=== PATIENT | female | born 1945 | race Caucasian/White ===

== ENCOUNTER 2018-08-27 15:12 | Inpatient (IN) ==
[2018-08-27] MEDS ORDERED: Benzonatate 100 MG CAPSULE PO PRN (17:27)
[2018-08-27] MEDS ORDERED: Diclofenac Sodium 75 MG TABLET PO PRN (17:27)
[2018-08-27] MEDS ORDERED: *HR* LORazepam 0.5 MG TABLET PO PRN (17:27)
[2018-08-27] MEDS ORDERED: Menthol 9.1 MG LOZENGE PO PRN (17:27)
[2018-08-27] MEDS ORDERED: Nitroglycerin 0.4 MG TAB.SUBL SL PRN (17:27)
[2018-08-27] MEDS: Nystatin SUSP 5 ML UD.LIQ PO SCH (20:54)
[2018-08-27] MEDS: Melatonin 3 MG TABLET PO SCH (20:55)
[2018-08-27] MEDS: Famotidine 20 MG TABLET PO SCH (20:55)
[2018-08-27] MEDS: Budesonide/Formoterol 160/4.5 1 PUFF INH IH SCH (21:07)
[2018-08-27] MEDS: Albuterol 2.5 MG/3 ML NEBULIZER IH PRN (21:07)
[2018-08-28] MEDS: Famotidine 20 MG TABLET PO SCH ×2 (09:07→20:26)
[2018-08-28] MEDS: Lactobacillus 1 EACH CAP.SPRINK PO SCH (09:07)
[2018-08-28] MEDS: Multivit/Ca/Min/Fe/FA 1 TAB TABLET PO SCH (09:07)
[2018-08-28] MEDS: Furosemide 40 MG TABLET PO SCH (09:07)
[2018-08-28] MEDS: Loratadine 10 MG TABLET PO SCH (09:07)
[2018-08-28] MEDS: Nystatin SUSP 5 ML UD.LIQ PO SCH ×4 (09:07→20:26)
[2018-08-28] MEDS: predniSONE 10 MG TABLET PO SCH (09:07)
[2018-08-28] MEDS: Budesonide/Formoterol 160/4.5 1 PUFF INH IH SCH (10:11)
[2018-08-28] MEDS: Albuterol 2.5 MG/3 ML NEBULIZER IH PRN ×2 (10:17→14:46)
--- NOTE | 2018-08-28 15:31 | Internal Med History&Physical ---
Date of Encounter: 08/28/18 Time of Encounter: 15:00 Assessment and Plan (1) Cavitary pneumonia Current visit: No Status: Chronic Continue Augmentin and voriconazole through 10/08/2018. (Aspergillus fumigatus elements seen on sputum culture. No bacterial organisms isolated) Lactobacillus will be added. (2) Hypertension Current visit: No Status: Chronic Continue metoprolol. Qualifiers: Hypertension type: essential hypertension Qualified Code(s): I10 - Essential (primary) hypertension (3) COPD (chronic obstructive pulmonary disease) Current visit: No Status: Chronic Continue antibiotics with Anoro Ellipta, Proventil nebs prn, prednisone, and Mucinex, Qualifiers: COPD type: chronic bronchitis Chronic bronchitis type: unspecified Qualified Code(s): J42 - Unspecified chronic bronchitis (4) Cavitary lesion of lung Current visit: No Status: Chronic Continue Augmentin and voriconazole with prednisone for 6 weeks. (5) Chronic diastolic heart failure Current visit: No Status: Acute Continue Lasix and Lopressor. Check BN peptide in a.m. (6) Pneumothorax Current visit: No Status: Acute Continue Heimlich valve with pulmonary follow-up as scheduled. Qualifiers: Encounter type: subsequent encounter Qualified Code(s): S27.0XXD - Traumatic pneumothorax, subsequent encounter (7) Anemia Current visit: No Status: Chronic Order anemia testing in a.m. Qualifiers: Anemia type: unspecified type Qualified Code(s): D64.9 - Anemia, unspecified Internal Medicine - H&P: HPI Chief complaint: Dyspnea Admitted From: Hospital to Hospital Transfer Plans for Post Hospital Care: Home History of present illness: Ms. Chandra is a 73 year old female who was transferred to [facility] swing bed following July hospitalization at [facility] for CAP and exacerbation of COPD with right pneumothorax requiring chest tube placement. 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 A right lung cavitary lesion had CT-guided biopsy which did not show malignancy. 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 Respiratory history is significant for having smoked from age [age] up to one and a half packs per day. She had PFTs 03/15/2018 that showed FVC 78% predicted, FEV1 59% predicted, FEV1/FVC 57%, and FEF 25-75% of 34% predicted. She was felt to have moderate obstructive lung disease. She reports negative result from [facility] testing in the past. She has used supplemental oxygen at home for 2-3 years. Past Med Surg Social Fam HX - Past Medical History Medical history: CHF, COPD, hypertension Additional medical history: mitral valve prolapse Psychiatric history: anxiety - Past Surgical History Surgical History: angioplasty/stent, breast surgery, cholecystectomy, hysterectomy, orthopedic, other, other Additional surgical history: left breast. back surgery. EGD. 2 heart stents. Nerve stimulator placement. - Social History Smoking Status: Former smoker Smokeless Tobacco Status: No Alcohol use: none Drug use: none - Family History Brother Living Status: Hx Family Cardiac Disorders: Yes Mother Living Status: Hx Family Cardiac Disorders: Yes ("artery disease", CHF) Hx Family GI Disorders: Yes (ulcers) Hx Family Endocrine Disorder: Yes Father Living Status: Hx Family Cardiac Disorders: Yes ("valve problems") Internal Medicine - H&P: Meds Citalopram [CeleXA] 20 mg PO DAILY 07/28/15 [History] Loratadine [Claritin] 10 mg PO DAILY 07/28/15 [History] Metoprolol [Lopressor] 25 mg PO BID 07/28/15 [History] Nitroglycerin [Nitrostat] 0.4 mg SL Q5M PRN 07/28/15 [History] Aspirin [Lo-Dose Aspirin EC] 81 mg PO DAILY 05/04/18 [History] Budesonide/Formoterol 160/4.5 [Symbicort 160/4.5] 2 puff IH BIDR 05/04/18 [History] L. Acidophilus/Pectin, Hansen [Acidophilus Probiotic Capsule] 1 cap PO DAILY 05/04/18 [History] Multivitamin [One Daily] 1 tab PO DAILY 05/04/18 [History] raNITIdine HCl [Zantac] 150 mg PO BID 05/04/18 [History] Menthol [Cough Drops] 9.1 mg PO Q2H PRN #0 lozenge 05/11/18 [Rx] Melatonin 6 mg PO HS 05/31/18 [History] Guaifenesin [Mucinex] 600 mg PO BID PRN 06/15/18 [History] Albuterol Neb [Proventil Neb] 2.5 mg PO TID PRN 08/03/18 [History] Benzonatate [Tessalon] 200 mg PO HS PRN 08/03/18 [History] Diclofenac Sodium [Voltaren] 75 mg PO DAILY PRN 08/03/18 [History] Nystatin [Nystatin Suspension] 4 ml PO QID 08/03/18 [History] Promethazine [Phenergan] 25 mg PO Q6H PRN 08/03/18 [History] Umeclidinium Brm/Vilanterol Tr [Anoro Ellipta 62.5-25 Mcg INH] 2 puff PO DAILY 08/03/18 [History] Amoxicillin/Clavulanate [Augmentin] 875 mg PO BIDWM #84 tablet 08/27/18 [Rx] Furosemide [Lasix] 40 mg PO DAILY tablet 08/27/18 [Rx] Furosemide [Lasix] 40 mg PO DAILY #30 tablet 08/27/18 [Rx] LORazepam [Ativan] 0.5 mg PO BID PRN 5 Days #10 tablet 08/27/18 [Rx] Voriconazole [VFend] 200 mg PO Q12H #84 tablet 08/27/18 [Rx] predniSONE [PredniSONE] 10 mg PO DAILY #30 tablet 08/27/18 [Rx] Allergy/AdvReac Type Severity Reaction Status Date / Time clarithromycin [From Biaxin] Allergy Gastrointestinal Verified 08/03/18 14:48 Upset codeine AdvReac See Verified 08/03/18 14:48 Comments lansoprazole [From Prevacid] AdvReac ulcer Verified 08/03/18 14:48 lisinopril AdvReac Cough Verified 08/03/18 14:48 meloxicam [From Mobic] AdvReac ulcer Verified 08/03/18 14:48 opium (anthroposophic) AdvReac nausea/vomi Verified 08/03/18 14:48 [Opium (Anthroposophic)] ting All Systems PM: A 10-system review of systems was performed and is negative for pertinent findings except as documented above in the HPI. Review of systems: Gen.: Her weight has decreased from 73.42 kg August 2016 to 69.5 kg admission now Cardiovascular: She has history of hypertension and known ASHD with 2 stents placed approximately 2003. She reports a diagnosis of heart failure. Echocardiogram 06/01/2018 showed LVEF of 55%. There was mild tricuspid regurgitation. The interventricular septum and posterior wall thickness measurements were 1.30 and 1.20 cm respectively. Estimated RVSP was 13 mmHg. She denies DVT or pulmonary embolus. Respiratory: As per history of present illness GI: She has had cholecystectomy. She denies disorders of her liver or exocrine pancreas : She denies hematuria dysuria or kidney stones Neurologic: She denies large distribution strokes or seizures. Endocrine: She has hyperlipidemia denies diabetes or thyroid disease Hematology/oncology: She has anemia. She denies internal malignancies or other blood disorders. Psychiatric: She has anxiety and depression but denies other mental health diagnoses. [place] skeletal: She has DJD. She has had back surgery for spinal stenosis with pain stimulator placed. She denies gout or other bone joint or muscle diso rders. - Constitutional Vitals: Temp Pulse Resp BP Pulse Ox 97.7 F 105 24 174/66 94 08/28/18 07:36 08/28/18 12:55 08/28/18 14:46 08/28/18 07:36 08/28/18 14:46 Exam: Gen.: She is well-developed well-nourished female sitting in bed who appears dyspneic at rest HEENT: Head is atraumatic and normocephalic. Eyes: EOMI. There is no scleral icterus. Mouth: Mucosa is moist. Neck: Supple and nontender. There is no thyromegaly or adenopathy noted. Heart: Regular without murmurs gallops or ectopics Lungs: She has pleural friction rub heard in the right anterior lung field. A Heimlich valve is in place with insertion site in the right posterior upper lung. Abdomen: Soft and nontender. No masses or guarding are noted. Extremities: There is 1-2+ edema of the dorsum of the feet and lower legs bilaterally. Dorsalis pedis and posterior tibial pulses are not palpated. Neurologic: Mental status: She is talkative and a good historian. Cranial nerves: Smile is symmetric. Forehead wrinkles bilaterally. Tongue protrudes midline. EOMI. Motor: There is no pronator drift. Cerebellar: Finger to nose is intact bilaterally. Skin: Warm and dry
[2018-08-28] MEDS: Melatonin 3 MG TABLET PO SCH (20:26)
[2018-08-28] MEDS: *HR* LORazepam 0.5 MG TABLET PO PRN (22:41)
[2018-08-28] MEDS: traMADol 50 MG TABLET PO PRN (22:41)
[2018-08-29 07:42] LABS: Thyroid Stimulating Hormone 1.502 mcIU/mL (0.340-5.600)
[2018-08-29] MEDS: traMADol 50 MG TABLET PO PRN ×2 (09:08→20:33)
[2018-08-29] MEDS: *HR* LORazepam 0.5 MG TABLET PO PRN ×2 (09:08→20:33)
[2018-08-29] MEDS: Nystatin SUSP 5 ML UD.LIQ PO SCH ×4 (09:08→20:33)
[2018-08-29] MEDS: predniSONE 10 MG TABLET PO SCH (09:09)
[2018-08-29] MEDS: Furosemide 40 MG TABLET PO SCH (09:09)
[2018-08-29] MEDS: Lactobacillus 1 EACH CAP.SPRINK PO SCH (09:09)
[2018-08-29] MEDS: Multivit/Ca/Min/Fe/FA 1 TAB TABLET PO SCH (09:09)
[2018-08-29] MEDS: Loratadine 10 MG TABLET PO SCH (09:09)
[2018-08-29] MEDS: Famotidine 20 MG TABLET PO SCH ×2 (09:09→20:33)
[2018-08-29 09:40] LABS: Vitamin B12 664 pg/mL (250-1100)
[2018-08-29 10:04] LABS: Folate > 22.3 ng/mL (3.0-16.0)
--- NOTE | 2018-08-29 15:55 | Internal Med Progress Note ---
Date of Encounter: 08/29/18 Time of Encounter: 15:48 - Assessment and plan (1) Cavitary pneumonia Current Visit: No Status: Chronic Assessment and plan: August 29. Continue Augmentin and voriconazole through 10/08/2018. (2) Hypertension Current Visit: No Status: Chronic Assessment and plan: August 29. Continue metoprolol. Qualifiers: Hypertension type: essential hypertension Qualified Code(s): I10 - Essential (primary) hypertension (3) COPD (chronic obstructive pulmonary disease) Current Visit: No Status: Chronic Assessment and plan: August 29. Continue antibiotics with Anoro Ellipta, Proventil nebs prn, prednisone, and Mucinex, Qualifiers: COPD type: chronic bronchitis Chronic bronchitis type: unspecified Qualified Code(s): J42 - Unspecified chronic bronchitis (4) Chronic diastolic heart failure Current Visit: No Status: Acute Assessment and plan: August 29. BN peptide elevated at 824. Continue Lopressor. Change from Lasix to Bumex and add Imdur and Lanoxin. (5) Pneumothorax Current Visit: No Status: Acute Assessment and plan: August 29. Continue Heimlich valve with pulmonary follow-up as scheduled. Qualifiers: Encounter type: subsequent encounter Qualified Code(s): S27.0XXD - Traumatic pneumothorax, subsequent encounter (6) Anemia Current Visit: No Status: Chronic Assessment and plan: August 29. Anemia testing showed iron 13, transferrin saturation 4%, transferrin 220, ferritin 75, B12 664, and folate> 22.3. She is on H2 darlene which will decrease absorption of oral iron. She will be given iron dextran IV. Qualifiers: Anemia type: unspecified type Qualified Code(s): D64.9 - Anemia, unspecified - Subjective Interval history: August 29. She has no new complaints and think she feels slightly better. She still has dyspnea. - Constitutional Vitals: Temp Pulse Resp BP Pulse Ox 98.3 F 114 20 106/68 94 08/29/18 07:05 08/29/18 07:05 08/29/18 07:05 08/29/18 07:05 08/29/18 07:05 Exam: She is resting comfortably in bed. Her affect is overall cheerful. Extremity edema is unchanged. I reviewed her medications and lab results. Internal Medicine: Result - Impressions Impressions Chest X-Ray 08/28/18 17:53 IMPRESSION: 1. Stable cardiopulmonary status since 08/26/2018. D/ / 08/28/2018 20:05:47 Kenya Bullock MD / [email or web address] Interpreting Provider: Kenya Bullock MD Consult Discharge Plan - Plan Referrals: Ean Herron Jr, MD [Primary Care Provider] - 1 week
[2018-08-29] MEDS ORDERED: SODIUM CHLORIDE 0.9% IVPB ONE (15:58)
[2018-08-29] MEDS ORDERED: IRON DEXTRAN COMPLEX IVPB ONE (15:58)
[2018-08-29] MEDS: Isosorbide MONOnitrate (24 HR) 30 MG TAB.ER.24H PO SCH (17:29)
[2018-08-29] MEDS: *HR* Digoxin 0.125 MG TABLET PO SCH (17:29)
[2018-08-29] MEDS: Bumetanide 1 MG TABLET PO SCH (17:29)
[2018-08-29] MEDS: Melatonin 3 MG TABLET PO SCH (20:33)
[2018-08-30] MEDS: *HR* LORazepam 0.5 MG TABLET PO PRN ×3 (02:30→19:43)
[2018-08-30] MEDS: traMADol 50 MG TABLET PO PRN ×3 (02:30→19:43)
[2018-08-30] MEDS: Isosorbide MONOnitrate (24 HR) 30 MG TAB.ER.24H PO SCH (08:47)
[2018-08-30] MEDS: Lactobacillus 1 EACH CAP.SPRINK PO SCH (08:47)
[2018-08-30] MEDS: Multivit/Ca/Min/Fe/FA 1 TAB TABLET PO SCH (08:47)
[2018-08-30] MEDS: *HR* Digoxin 0.125 MG TABLET PO SCH (08:47)
[2018-08-30] MEDS: Loratadine 10 MG TABLET PO SCH (08:47)
[2018-08-30] MEDS: Nystatin SUSP 5 ML UD.LIQ PO SCH ×4 (08:47→19:55)
[2018-08-30] MEDS: Famotidine 20 MG TABLET PO SCH ×2 (08:47→19:54)
[2018-08-30] MEDS: Bumetanide 1 MG TABLET PO SCH (08:47)
[2018-08-30] MEDS: predniSONE 10 MG TABLET PO SCH (08:47)
[2018-08-30] MEDS ORDERED: IRON DEXTRAN COMPLEX IVPB ONE (09:00)
[2018-08-30] MEDS ORDERED: SODIUM CHLORIDE 0.9% IVPB ONE (09:00)
--- NOTE | 2018-08-30 12:03 | Internal Med Progress Note ---
Date of Encounter: 08/30/18 Time of Encounter: 11:54 - Assessment and plan (1) Cavitary pneumonia Current Visit: No Status: Chronic Assessment and plan: August 29. Continue Augmentin and voriconazole through 10/08/2018. (2) Hypertension Current Visit: No Status: Chronic Assessment and plan: August 29. Continue metoprolol. August 30. Blood pressure shows borderline low readings. Decrease metoprolol to 12.5 mg twice a day. Qualifiers: Hypertension type: essential hypertension Qualified Code(s): I10 - Essential (primary) hypertension (3) COPD (chronic obstructive pulmonary disease) Current Visit: No Status: Chronic Assessment and plan: August 29. Continue antibiotics with Anoro Ellipta, Proventil nebs prn, prednisone, and Mucinex, Qualifiers: COPD type: chronic bronchitis Chronic bronchitis type: unspecified Qualified Code(s): J42 - Unspecified chronic bronchitis (4) Chronic diastolic heart failure Current Visit: No Status: Acute Assessment and plan: August 29. BN peptide elevated at 824. Continue Lopressor. Change from Lasix to Bumex and add Imdur and Lanoxin. August 30. Recheck labs in a.m. (5) Pneumothorax Current Visit: No Status: Acute Assessment and plan: August 29. Continue Heimlich valve with pulmonary follow-up as scheduled. Qualifiers: Encounter type: subsequent encounter Qualified Code(s): S27.0XXD - Traumatic pneumothorax, subsequent encounter (6) Anemia Current Visit: No Status: Chronic Assessment and plan: August 29. Anemia testing showed iron 13, transferrin saturation 4%, transferrin 220, ferritin 75, B12 664, and folate> 22.3. She is on H2 darlene which will decrease absorption of oral iron. She will be given iron dextran IV. August 30. Recheck labs in a.m. Qualifiers: Anemia type: unspecified type Qualified Code(s): D64.9 - Anemia, unspecified - Subjective Interval history: August 29. She has no new complaints and think she feels slightly better. She still has dyspnea. August 30. She has no new complaints. She states she is slightly less dyspneic and feels better overall. - Constitutional Vitals: Temp Pulse Resp BP Pulse Ox 97.9 F 109 20 104/70 94 08/30/18 07:54 08/30/18 07:54 08/30/18 07:54 08/30/18 07:54 08/30/18 07:54 Exam: She is sitting on the side of bed eating lunch. She is minimally dyspneic and able to converse. Extremities show 1-2+ edema bilaterally of the dorsum of the feet and lower legs. I reviewed her medications and lab results. Consult Discharge Plan - Plan Referrals: Ean Herron Jr, MD [Primary Care Provider] - 1 week
[2018-08-30] MEDS: Melatonin 3 MG TABLET PO SCH (19:54)
[2018-08-30] MEDS: Albuterol 2.5 MG/3 ML NEBULIZER IH PRN (22:51)
[2018-08-31] MEDS: Albuterol 2.5 MG/3 ML NEBULIZER IH PRN ×2 (07:36→15:32)
[2018-08-31] MEDS: Isosorbide MONOnitrate (24 HR) 30 MG TAB.ER.24H PO SCH (08:18)
[2018-08-31] MEDS: Lactobacillus 1 EACH CAP.SPRINK PO SCH (08:18)
[2018-08-31] MEDS: Bumetanide 1 MG TABLET PO SCH (08:18)
[2018-08-31] MEDS: Loratadine 10 MG TABLET PO SCH (08:19)
[2018-08-31] MEDS: Multivit/Ca/Min/Fe/FA 1 TAB TABLET PO SCH (08:19)
[2018-08-31] MEDS: *HR* Digoxin 0.125 MG TABLET PO SCH (08:19)
[2018-08-31] MEDS: Famotidine 20 MG TABLET PO SCH ×2 (08:19→20:00)
[2018-08-31] MEDS: predniSONE 10 MG TABLET PO SCH (08:19)
[2018-08-31] MEDS: Nystatin SUSP 5 ML UD.LIQ PO SCH ×4 (08:19→20:00)
[2018-08-31] MEDS: *HR* LORazepam 0.5 MG TABLET PO PRN ×2 (08:23→16:01)
[2018-08-31] MEDS: traMADol 50 MG TABLET PO PRN ×2 (08:23→18:07)
[2018-08-31 09:37] LABS: Basophils % 0.2 %; Eosinophils # 0.2 K/mcL (0.0-0.6); Eosinophils % 1.4 %; Hematocrit 33.8 % (35.3-44.9); Hemoglobin 9.9 g/dL (11.5-15.4); Immature Granulocytes % 0.9 % (0-4); Lymphocytes # 1.1 K/mcL (0.6-4.6); Lymphocytes % 8.5 %; Mean Corpuscular HGB Conc 29.3 g/dL (31.6-35.5); Mean Corpuscular Hemoglobin 28.4 pg (28.0-33.3); Mean Corpuscular Volume 96.8 fL (83.0-100.0); Mean Platelet Volume 11.5 fL (9.4-12.4); Monocytes # 1.2 K/mcL (0.0-1.3); Monocytes % 9.4 %; Nucleated Red Blood Cells 0.2 /100 WBC (0); Platelet Count 330 K/mcL (140-400); Red Blood Count 3.49 M/mcL (3.82-4.97); Red Cell Distribution Width 16.3 % (11.5-14.5); Segmented Neutrophils % 79.6 %; White Blood Count 12.5 K/mcL (4.3-11.1)
[2018-08-31 09:52] LABS: Alanine Aminotransferase 51 Units/L (7-52); Albumin 3.6 g/dL (3.5-5.7); Albumin/Globulin Ratio 0.9 (1.1-2.2); Alkaline Phosphatase 150 Units/L (34-104); Aspartate Amino Transferase 36 Units/L (13-39); BUN/Creatinine Ratio 45 (6-26); Bilirubin,Total 0.3 mg/dL (0.3-1.0); Blood Urea Nitrogen 24 mg/dL (8-23); Calcium 10.2 mg/dL (8.6-10.3); Carbon Dioxide 31 mEq/L (23-29); Chloride 93 mEq/L (98-107); Globulin 3.8 g/dL (2.4-3.5); Glucose 139 mg/dL (70-105); Osmolality,Calculated 286 (280-300); Potassium 4.1 mEq/L (3.5-5.1); Sodium 135 mEq/L (136-145); Total Protein 7.4 g/dL (6.4-8.9); eGFR For African Americans > 60 (> 60); eGFR For Non-African Americans > 60 (> 60)
--- NOTE | 2018-08-31 10:21 | Internal Med Progress Note ---
Date of Encounter: 08/31/18 Time of Encounter: 10:15 - Assessment and plan (1) Cavitary pneumonia Current Visit: No Status: Chronic Assessment and plan: August 29. Continue Augmentin and voriconazole through 10/08/2018. (2) Hypertension Current Visit: No Status: Chronic Assessment and plan: August 29. Continue metoprolol. August 30. Blood pressure shows borderline low readings. Decrease metoprolol to 12.5 mg twice a day. Qualifiers: Hypertension type: essential hypertension Qualified Code(s): I10 - Essential (primary) hypertension (3) COPD (chronic obstructive pulmonary disease) Current Visit: No Status: Chronic Assessment and plan: August 29. Continue antibiotics with Anoro Ellipta, Proventil nebs prn, prednisone, and Mucinex, Qualifiers: COPD type: chronic bronchitis Chronic bronchitis type: unspecified Qualified Code(s): J42 - Unspecified chronic bronchitis (4) Chronic diastolic heart failure Current Visit: No Status: Acute Assessment and plan: August 29. BN peptide elevated at 824. Continue Lopressor. Change from Lasix to Bumex and add Imdur and Lanoxin. August 30. Recheck labs in a.m. August 31. BN peptide has risen to 1321. Increase Imdur and Bumex. Continue present dose Lanoxin and metoprolol. (5) Pneumothorax Current Visit: No Status: Acute Assessment and plan: August 29. Continue Heimlich valve with pulmonary follow-up as scheduled. Qualifiers: Encounter type: subsequent encounter Qualified Code(s): S27.0XXD - Tra umatic pneumothorax, subsequent encounter (6) Anemia Current Visit: No Status: Chronic Assessment and plan: August 29. Anemia testing showed iron 13, transferrin saturation 4%, transferrin 220, ferritin 75, B12 664, and folate> 22.3. She is on H2 darlene which will decrease absorption of oral iron. She will be given iron dextran IV. August 30. Recheck labs in a.m. August 31. She tolerated IV iron dextran without complications. Hemoglobin has risen to 9.9. Continue to monitor. Qualifiers: Anemia type: unspecified type Qualified Code(s): D64.9 - Anemia, unspecified - Subjective Interval history: August 29. She has no new complaints and think she feels slightly better. She still has dyspnea. August 30. She has no new complaints. She states she is slightly less dyspneic and feels better overall. August 31. She has no new complaints. She states she is more dyspneic today. - Constitutional Vitals: Temp Pulse Resp BP Pulse Ox 98.5 F 80 96 121/51 90 08/31/18 08:30 08/31/18 08:30 08/31/18 08:30 08/31/18 08:30 08/31/18 07:36 Exam: She is sitting at bedside and appears in no acute distress. Extremity edema remains 1-2+ bilaterally in the dorsum of feet and lower legs. Her speech is not broken from dyspnea. I reviewed her medications and lab results. Internal Medicine: Result - Labs CBC & Chem 7: 08/31/18 09:30 08/31/18 09:30 Labs: Short CBC 08/31/18 Range/Units 09:30 WBC 12.5 H (4.3-11.1) K/mcL Hgb 9.9 L D (11.5-15.4) g/dL Hct 33.8 L (35.3-44.9) % Plt Count 330 (140-400) K/mcL Neutrophils # 10.0 H (1.6-8.9) K/mcL BMP 08/31/18 09:30 Sodium 135 L Potassium 4.1 Chloride 93 L Carbon Dioxide 31 H BUN 24 H Creatinine 0.53 L Glucose 139 H Calcium 10.2 Liver Function 08/31/18 Range/Units 09:30 Total Bilirubin 0.3 (0.3-1.0) mg/dL AST 36 (13-39) Units/L ALT 51 (7-52) Units/L Alkaline Phosphatase 150 H (34-104) Units/L Albumin 3.6 (3.5-5.7) g/dL Consult Discharge Plan - Plan Referrals: Ean Herron Jr, MD [Primary Care Provider] - 1 week
[2018-08-31] MEDS: Melatonin 3 MG TABLET PO SCH (20:00)
[2018-09-01] MEDS: traMADol 50 MG TABLET PO PRN ×4 (00:03→22:56)
[2018-09-01] MEDS: *HR* LORazepam 0.5 MG TABLET PO PRN ×2 (00:03→10:07)
[2018-09-01 06:14] LABS: Basophils % 0.2 %; Eosinophils # 0.2 K/mcL (0.0-0.6); Eosinophils % 1.6 %; Hematocrit 30.1 % (35.3-44.9); Hemoglobin 9.1 g/dL (11.5-15.4); Immature Granulocytes % 0.7 % (0-4); Lymphocytes # 1.1 K/mcL (0.6-4.6); Lymphocytes % 7.8 %; Mean Corpuscular HGB Conc 30.2 g/dL (31.6-35.5); Mean Corpuscular Hemoglobin 28.5 pg (28.0-33.3); Mean Corpuscular Volume 94.4 fL (83.0-100.0); Mean Platelet Volume 11.4 fL (9.4-12.4); Monocytes # 1.5 K/mcL (0.0-1.3); Monocytes % 10.8 %; Neutrophils # 10.7 K/mcL (1.6-8.9); Nucleated Red Blood Cells 0.7 /100 WBC (0); Platelet Count 402 K/mcL (140-400); Red Blood Count 3.19 M/mcL (3.82-4.97); Red Cell Distribution Width 16.2 % (11.5-14.5); Segmented Neutrophils % 78.9 %; White Blood Count 13.5 K/mcL (4.3-11.1)
[2018-09-01 06:23] LABS: BUN/Creatinine Ratio 51 (6-26); Blood Urea Nitrogen 23 mg/dL (8-23); Carbon Dioxide 32 mEq/L (23-29); Chloride 95 mEq/L (98-107); Glucose 115 mg/dL (70-105); Osmolality,Calculated 287 (280-300); Potassium 4.1 mEq/L (3.5-5.1); Sodium 136 mEq/L (136-145); eGFR For African Americans > 60 (> 60); eGFR For Non-African Americans > 60 (> 60)
[2018-09-01] MEDS: Albuterol 2.5 MG/3 ML NEBULIZER IH PRN (08:46)
[2018-09-01] MEDS: Famotidine 20 MG TABLET PO SCH ×2 (10:07→19:34)
[2018-09-01] MEDS: Bumetanide 1 MG TABLET PO SCH (10:07)
[2018-09-01] MEDS: Loratadine 10 MG TABLET PO SCH (10:07)
[2018-09-01] MEDS: Lactobacillus 1 EACH CAP.SPRINK PO SCH (10:07)
[2018-09-01] MEDS: Multivit/Ca/Min/Fe/FA 1 TAB TABLET PO SCH (10:07)
[2018-09-01] MEDS: *HR* Digoxin 0.125 MG TABLET PO SCH (10:07)
[2018-09-01] MEDS: Isosorbide MONOnitrate (24 HR) 60 MG TAB.ER.24H PO SCH (10:08)
[2018-09-01] MEDS: Nystatin SUSP 5 ML UD.LIQ PO SCH ×4 (10:08→19:34)
[2018-09-01] MEDS: predniSONE 10 MG TABLET PO SCH (10:08)
[2018-09-01] MEDS: Melatonin 3 MG TABLET PO SCH (19:34)
[2018-09-01] MEDS: ALPRAZolam 0.5 MG TABLET PO PRN (22:56)
[2018-09-02 07:02] LABS: Basophils % 0.2 %; Eosinophils # 0.2 K/mcL (0.0-0.6); Eosinophils % 1.4 %; Hemoglobin 8.7 g/dL (11.5-15.4); Immature Granulocytes % 1.1 % (0-4); Lymphocytes % 9.7 %; Mean Corpuscular Hemoglobin 28.2 pg (28.0-33.3); Mean Corpuscular Volume 94.2 fL (83.0-100.0); Mean Platelet Volume 11.7 fL (9.4-12.4); Monocytes # 1.2 K/mcL (0.0-1.3); Monocytes % 11.4 %; Neutrophils # 8.2 K/mcL (1.6-8.9); Nucleated Red Blood Cells 1.5 /100 WBC (0); Platelet Count 350 K/mcL (140-400); Red Blood Count 3.08 M/mcL (3.82-4.97); Red Cell Distribution Width 16.5 % (11.5-14.5); Segmented Neutrophils % 76.2 %; White Blood Count 10.7 K/mcL (4.3-11.1)
[2018-09-02] MEDS: Albuterol 2.5 MG/3 ML NEBULIZER IH PRN (07:57)
[2018-09-02] MEDS: *HR* Digoxin 0.125 MG TABLET PO SCH (08:44)
[2018-09-02] MEDS: Nystatin SUSP 5 ML UD.LIQ PO SCH ×4 (08:44→20:51)
[2018-09-02] MEDS: ALPRAZolam 0.5 MG TABLET PO PRN ×2 (08:44→15:44)
[2018-09-02] MEDS: Bumetanide 1 MG TABLET PO SCH (08:44)
[2018-09-02] MEDS: predniSONE 10 MG TABLET PO SCH (08:45)
[2018-09-02] MEDS: Isosorbide MONOnitrate (24 HR) 60 MG TAB.ER.24H PO SCH (08:45)
[2018-09-02] MEDS: Famotidine 20 MG TABLET PO SCH ×2 (08:45→20:55)
[2018-09-02] MEDS: Loratadine 10 MG TABLET PO SCH (08:45)
[2018-09-02] MEDS: Lactobacillus 1 EACH CAP.SPRINK PO SCH (08:45)
[2018-09-02] MEDS: Multivit/Ca/Min/Fe/FA 1 TAB TABLET PO SCH (08:45)
--- NOTE | 2018-09-02 11:08 | Internal Med Progress Note ---
Date of Encounter: 09/02/18 Time of Encounter: 11:00 - Assessment and plan (1) Cavitary pneumonia Current Visit: No Status: Chronic Assessment and plan: August 29. Continue Augmentin and voriconazole through 10/08/2018. (2) Hypertension Current Visit: No Status: Chronic Assessment and plan: August 29. Continue metoprolol. August 30. Blood pressure shows borderline low readings. Decrease metoprolol to 12.5 mg twice a day. September 02. Blood pressure acceptable. Heart rate shows frequent borderline tachycardia. Maintain metoprolol 25 mg twice a day. Qualifiers: Hypertension type: essential hypertension Qualified Code(s): I10 - Essential (primary) hypertension (3) COPD (chronic obstructive pulmonary disease) Current Visit: No Status: Chronic Assessment and plan: August 29. Continue antibiotics with Anoro Ellipta, Proventil nebs prn, prednisone, and Mucinex Qualifiers: COPD type: chronic bronchitis Chronic bronchitis type: unspecified Qualified Code(s): J42 - Unspecified chronic bronchitis (4) Chronic diastolic heart failure Current Visit: No Status: Acute Assessment and plan: August 29. BN peptide elevated at 824. Continue Lopressor. Change from Lasix to Bumex and add Imdur and Lanoxin. August 30. Recheck labs in a.m. August 31. BN peptide has risen to 1321. Increase Imdur and Bumex. Continue present dose Lanoxin and metoprolol. September 02. BN peptide shows slight decrease at 1255. Lanoxin level low at 0.4. Increase Lanoxin dose and Imdur (5) Pneumothorax Current Visit: No Status: Acute Assessment and plan: August 29. Continue Heimlich valve with pulmonary follow-up as scheduled. Qualifiers: Encounter type: subsequent encounter Qualified Code(s): S27.0XXD - Traumatic pneumothorax, subsequent encounter (6) Anemia Current Visit: No Status: Chronic Assessment and plan: August 29. Anemia testing showed iron 13, transferrin saturation 4%, transferrin 220, ferritin 75, B12 664, and folate> 22.3. She is on H2 darlene which will decrease absorption of oral iron. She will be given iron dextran IV. August 30. Recheck labs in a.m. August 31. She tolerated IV iron dextran without complications. Hemoglobin has risen to 9.9. Continue to monitor. September 02. Hemoglobin has decreased to 8.7. Guaiac stool and continue to monitor labs. Qualifiers: Anemia type: unspecified type Qualified Code(s): D64.9 - Anemia, unspecified - Subjective Interval history: August 29. She has no new complaints and think she feels slightly better. She still has dyspnea. August 30. She has no new complaints. She states she is slightly less dyspneic and feels better overall. August 31. She has no new complaints. She states she is more dyspneic today. September 02. She has no new complaints. Dyspnea is unchanged. - Constitutional Vitals: Temp Pulse Resp BP Pulse Ox 97.6 F 99 17 106/70 92 09/02/18 06:35 09/02/18 06:35 09/02/18 06:35 09/02/18 06:35 09/02/18 06:35 Exam: She is sitting in bed and appears slightly dyspneic. She is able to speak entire sentences. Lungs show no wheezes or crackles. I reviewed her medications and lab results. Internal Medicine: Result - Labs CBC & Chem 7: 09/02/18 06:30 09/01/18 05:30 Labs: Short CBC 09/02/18 Range/Units 06:30 WBC 10.7 (4.3-11.1) K/mcL Hgb 8.7 L (11.5-15.4) g/dL Hct 29.0 L (35.3-44.9) % Plt Count 350 (140-400) K/mcL Neutrophils # 8.2 (1.6-8.9) K/mcL Consult Discharge Plan - Plan Referrals: Ean Herron Jr, MD [Primary Care Provider] - 1 week
[2018-09-02] MEDS: Melatonin 3 MG TABLET PO SCH (20:54)
[2018-09-03] MEDS: traMADol 50 MG TABLET PO PRN ×2 (06:02→17:16)
[2018-09-03] MEDS: ALPRAZolam 0.5 MG TABLET PO PRN ×2 (07:45→17:12)
[2018-09-03] MEDS: Loratadine 10 MG TABLET PO SCH (07:45)
[2018-09-03] MEDS: Lactobacillus 1 EACH CAP.SPRINK PO SCH (07:45)
[2018-09-03] MEDS: Nystatin SUSP 5 ML UD.LIQ PO SCH ×4 (07:45→20:21)
[2018-09-03] MEDS: Bumetanide 1 MG TABLET PO SCH (07:46)
[2018-09-03] MEDS: Isosorbide MONOnitrate (24 HR) 60 MG TAB.ER.24H PO SCH (07:46)
[2018-09-03] MEDS: Famotidine 20 MG TABLET PO SCH ×2 (07:46→20:22)
[2018-09-03] MEDS: Multivit/Ca/Min/Fe/FA 1 TAB TABLET PO SCH (07:46)
[2018-09-03] MEDS: *HR* Digoxin 0.25 MG TABLET PO SCH (07:46)
[2018-09-03] MEDS: predniSONE 10 MG TABLET PO SCH (07:48)
[2018-09-03] MEDS: Albuterol 2.5 MG/3 ML NEBULIZER IH PRN (16:42)
[2018-09-03] MEDS: Melatonin 3 MG TABLET PO SCH (20:22)
[2018-09-04] MEDS: ALPRAZolam 0.5 MG TABLET PO PRN ×3 (03:38→18:47)
[2018-09-04 05:40] LABS: Basophils % 0.2 %; Eosinophils # 0.2 K/mcL (0.0-0.6); Eosinophils % 1.5 %; Hematocrit 30.8 % (35.3-44.9); Immature Granulocytes % 1.6 % (0-4); Lymphocytes # 0.8 K/mcL (0.6-4.6); Lymphocytes % 7.9 %; Mean Corpuscular HGB Conc 29.2 g/dL (31.6-35.5); Mean Corpuscular Hemoglobin 28.4 pg (28.0-33.3); Mean Corpuscular Volume 97.2 fL (83.0-100.0); Mean Platelet Volume 10.9 fL (9.4-12.4); Monocytes # 1.2 K/mcL (0.0-1.3); Monocytes % 12.1 %; Neutrophils # 7.9 K/mcL (1.6-8.9); Nucleated Red Blood Cells 0.3 /100 WBC (0); Platelet Count 349 K/mcL (140-400); Red Blood Count 3.17 M/mcL (3.82-4.97); Red Cell Distribution Width 17.8 % (11.5-14.5); Segmented Neutrophils % 76.7 %; White Blood Count 10.3 K/mcL (4.3-11.1)
[2018-09-04] MEDS: Nystatin SUSP 5 ML UD.LIQ PO SCH ×4 (08:24→22:33)
[2018-09-04] MEDS: predniSONE 10 MG TABLET PO SCH (08:25)
[2018-09-04] MEDS: Isosorbide MONOnitrate (24 HR) 60 MG TAB.ER.24H PO SCH (08:25)
[2018-09-04] MEDS: Famotidine 20 MG TABLET PO SCH ×2 (08:25→22:33)
[2018-09-04] MEDS: Bumetanide 1 MG TABLET PO SCH (08:25)
[2018-09-04] MEDS: Lactobacillus 1 EACH CAP.SPRINK PO SCH (08:25)
[2018-09-04] MEDS: *HR* Digoxin 0.25 MG TABLET PO SCH (08:26)
[2018-09-04] MEDS: Loratadine 10 MG TABLET PO SCH (08:26)
[2018-09-04] MEDS: Multivit/Ca/Min/Fe/FA 1 TAB TABLET PO SCH (08:26)
[2018-09-04 08:44] LABS: Alanine Aminotransferase 27 Units/L (7-52); Albumin 3.2 g/dL (3.5-5.7); Albumin/Globulin Ratio 1.1 (1.1-2.2); Alkaline Phosphatase 134 Units/L (34-104); Aspartate Amino Transferase 23 Units/L (13-39); BUN/Creatinine Ratio 39 (6-26); Bilirubin,Total 0.3 mg/dL (0.3-1.0); Blood Urea Nitrogen 18 mg/dL (8-23); Calcium 9.8 mg/dL (8.6-10.3); Carbon Dioxide 41 mEq/L (23-29); Chloride 97 mEq/L (98-107); Digoxin 0.7 ng/mL (0.8-2.0); Glucose 106 mg/dL (70-105); Osmolality,Calculated 298 (280-300); Sodium 143 mEq/L (136-145); Total Protein 6.2 g/dL (6.4-8.9); eGFR For African Americans > 60 (> 60); eGFR For Non-African Americans > 60 (> 60)
--- NOTE | 2018-09-04 12:14 | Internal Med Progress Note ---
Date of Encounter: 09/04/18 Time of Encounter: 12:00 - Assessment and plan (1) Cavitary pneumonia Current Visit: No Status: Chronic Assessment and plan: August 29. Continue Augmentin and voriconazole through 10/08/2018. (2) Hypertension Current Visit: No Status: Chronic Assessment and plan: August 29. Continue metoprolol. August 30. Blood pressure shows borderline low readings. Decrease metoprolol to 12.5 mg twice a day. September 02. Blood pressure acceptable. Heart rate shows frequent borderline tachycardia. Maintain metoprolol 25 mg twice a day. September 04. Heart rate variable. Continue present dose metoprolol. Qualifiers: Hypertension type: essential hypertension Qualified Code(s): I10 - Essential (primary) hypertension (3) COPD (chronic obstructive pulmonary disease) Current Visit: No Status: Chronic Assessment and plan: August 29. Continue antibiotics with Anoro Ellipta, Proventil nebs prn, prednisone, and Mucinex Qualifiers: COPD type: chronic bronchitis Chronic bronchitis type: unspecified Qualified Code(s): J42 - Unspecified chronic bronchitis (4) Chronic diastolic heart failure Current Visit: No Status: Acute Assessment and plan: August 29. BN peptide elevated at 824. Continue Lopressor. Change from Lasix to Bumex and add Imdur and Lanoxin. August 30. Recheck labs in a.m. August 31. BN peptide has risen to 1321. Increase Imdur and Bumex. Continue present dose Lanoxin and metoprolol. September 02. BN peptide shows slight decrease at 1255. Lanoxin level low at 0.4. Increase Lanoxin dose and Imdur September 04. BN peptide further decreased to 1153. Continue present Rx. (5) Pneumothorax Current Visit: No Status: Acute Assessment and plan: August 29. Continue Heimlich valve with pulmonary follow-up as scheduled. Qualifiers: Encounter type: subsequent encounter Qualified Code(s): S27.0XXD - Traumatic pneumothorax, subsequent encounter (6) Anemia Current Visit: No Status: Chronic Assessment and plan: August 29. Anemia testing showed iron 13, transferrin saturation 4%, transferrin 220, ferritin 75, B12 664, and folate> 22.3. She is on H2 darlene which will decrease absorption of oral iron. She will be given iron dextran IV. August 30. Recheck labs in a.m. August 31. She tolerated IV iron dextran without complications. Hemoglobin has risen to 9.9. Continue to monitor. September 02. Hemoglobin has decreased to 8.7. Guaiac stool and continue to monitor labs. September 04. Hemoglobin stable at 9.0. Continue to monitor. Qualifiers: Anemia type: unspecified type Qualified Code(s): D64.9 - Anemia, unspecified (7) Hypokalemia Current Visit: Yes Status: Acute Assessment and plan: September 04. Potassium level decreased to 3.0 today. Supplemental potassium will be ordered - Subjective Interval history: August 29. She has no new complaints and think she feels slightly better. She still has dyspnea. August 30. She has no new complaints. She states she is slightly less dyspneic and feels better overall. August 31. She has no new complaints. She states she is more dyspneic today. September 02. She has no new complaints. Dyspnea is unchanged. September 04. She states her dyspnea is worse. She reports cough productive of green/brown mucus. - Constitutional Vitals: Temp Pulse Resp BP Pulse Ox 97.4 F L 114 20 115/64 85 09/04/18 06:51 09/04/18 06:51 09/04/18 06:51 09/04/18 06:51 09/04/18 06:51 Exam: She is sitting on the side of bed. She appears dyspneic. Lung sounds are symmetric. No wheezes or crackles are heard. Heart is regular with rate approximately 104/m. I reviewed her medications and lab results. Internal Medicine: Result - Labs CBC & Chem 7: 09/04/18 05:23 09/04/18 05:23 Labs: Short CBC 09/04/18 Range/Units 05:23 WBC 10.3 (4.3-11.1) K/mcL Hgb 9.0 L (11.5-15.4) g/dL Hct 30.8 L (35.3-44.9) % Plt Count 349 (140-400) K/mcL Neutrophils # 7.9 (1.6-8.9) K/mcL BMP 09/04/18 05:23 Sodium 143 Potassium 3.0 L Chloride 97 L Carbon Dioxide 41 H* BUN 18 Creatinine 0.46 L Glucose 106 H Calcium 9.8 Liver Function 09/04/18 Range/Units 05:23 Total Bilirubin 0.3 (0.3-1.0) mg/dL AST 23 (13-39) Units/L ALT 27 (7-52) Units/L Alkaline Phosphatase 134 H (34-104) Units/L Albumin 3.2 L (3.5-5.7) g/dL Consult Discharge Plan - Plan Referrals: Ean Herron Jr, MD [Primary Care Provider] - 1 week
[2018-09-04] MEDS: traMADol 50 MG TABLET PO PRN ×2 (12:26→18:46)
[2018-09-04 18:44] VITALS: BP 107/70
[2018-09-04] MEDS: Albuterol 2.5 MG/3 ML NEBULIZER IH PRN (18:49)
--- NOTE | 2018-09-04 19:34 | Discharge Summary ---
Orders not resulted at time of discharge: Pending orders 09/05/18 04:00 B-Type Natriuretic Peptide AM 0400 Basic Metabolic Panel AM 0400 Magnesium AM 0400 Date of Encounter: 09/04/18 Time of Encounter: 19:30 - Discharge Diagnosis (1) Cavitary pneumonia Priority: Primary Status: Chronic (2) Hypertension Priority: Secondary Status: Chronic Qualifiers: Hypertension type: essential hypertension Qualified Code(s): I10 - Essential (primary) hypertension (3) COPD (chronic obstructive pulmonary disease) Priority: Secondary Status: Chronic Qualifiers: COPD type: chronic bronchitis Chronic bronchitis type: unspecified Qualified Code(s): J42 - Unspecified chronic bronchitis (4) Chronic diastolic heart failure Priority: Secondary Status: Chronic (5) Pneumothorax Priority: Secondary Status: Chronic Qualifiers: Encounter type: subsequent encounter Qualified Code(s): S27.0XXD - Traumatic pneumothorax, subsequent encounter (6) Anemia Priority: Secondary Status: Chronic Qualifiers: Anemia type: unspecified type Qualified Code(s): D64.9 - Anemia, unspecified (7) Hypokalemia Priority: Secondary Status: Acute Hospital course: Ms. Chandra is a 73 year old female who was transferred to [facility] swing bed following August 02July 8 hospitalization at [facility] for CAP and exacerbation of COPD with right pneumothorax requiring chest tube placement. 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 A right lung cavitary lesion had CT-guided biopsy which did not show malignancy. 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 Initial orders were written by the discharging physicians at [facility]. I saw her on August 28 performed the swing bed history and physical. She continued on Augmentin and voriconazole with lactobacillus. She remained afebrile during her hospital stay. WBC normalized to 10.7 on September 02 and remained normal on follow-up labs September 04. Lopressor was continued for heart failure. Lasix was changed to Bumex and Lanoxin and Imdur were added. She had improvement clinically with BN peptide decreased to 1153 on September 04. Supplemental potassium was given September 04 for hypokalemia. Hemoglobin remained stable and was 9.0 on September 04. When I saw her September 04 she complained of increased dyspnea. Chest CT was done and showed decreased pleural fluid on the right with increased size of pleural gas collection/pneumothorax. Pulmonology at [facility] was notified of these findings. [place] wished her to be transferred back to [facility] for additional intervention using chest tube reexpansion. Arrangements were complete the evening of September 04 to return to [facility]. - Time Spent with Patient Total time spent providing and/or coordinating discharge services: - Discharge Medications Prescriptions: New ALPRAZolam [Xanax 0.5 MG Tablet] 0.25 mg PO Q6HR PRN tablet PRN Reason: Anxiety Bumetanide [Bumex] 2 mg PO DAILY tablet Digoxin [Lanoxin] 0.25 mg PO DAILY tablet Isosorbide MONOnitrate (24 HR) [Imdur] 120 mg PO DAILY tab.er.24h Potassium Chloride 10 meq PO BIDWM tab.er.prt Continued Loratadine [Claritin] 10 mg PO DAILY Citalopram [CeleXA] 20 mg PO DAILY Metoprolol [Lopressor] 25 mg PO BID Nitroglycerin [Nitrostat] 0.4 mg SL Q5M PRN PRN Reason: Chest Pain Budesonide/Formoterol 160/4.5 [Symbicort 160/4.5] 2 puff IH BIDR L. Acidophilus/Pectin, [place] [Acidophilus Probiotic Capsule] 1 cap PO DAILY raNITIdine HCl [Zantac] 150 mg PO BID Multivitamin [One Daily] 1 tab PO DAILY Aspirin [Lo-Dose Aspirin EC] 81 mg PO DAILY Menthol [Cough Drops] 9.1 mg PO Q2H PRN #0 lozenge PRN Reason: Cough Melatonin 6 mg PO HS Guaifenesin [Mucinex] 600 mg PO BID PRN PRN Reason: Congestion Albuterol Neb [Proventil Neb] 2.5 mg PO TID PRN PRN Reason: Shortness Of Breath Benzonatate [Tessalon] 200 mg PO HS PRN PRN Reason: Cough Nystatin [Nystatin Suspension] 4 ml PO QID Promethazine [Phenergan] 25 mg PO Q6H PRN PRN Reason: Nausea Umeclidinium Brm/Vilanterol Tr [Anoro Ellipta 62.5-25 Mcg INH] 2 puff PO DAILY Amoxicillin/Clavulanate [Augmentin] 875 mg PO BIDWM #84 tablet predniSONE [PredniSONE] 10 mg PO DAILY #30 tablet Voriconazole [VFend] 200 mg PO Q12H #84 tablet Discontinued Diclofenac Sodium [Voltaren] 75 mg PO DAILY PRN PRN Reason: Pain LORazepam [Ativan] 0.5 mg PO BID PRN 5 Days #10 tablet PRN Reason: Anxiety Furosemide [Lasix] 40 mg PO DAILY tablet Furosemide [Lasix] 40 mg PO DAILY #30 tablet Home Medications: Citalopram [CeleXA] 20 mg PO DAILY 07/28/15 [History] Loratadine [Claritin] 10 mg PO DAILY 07/28/15 [History] Metoprolol [Lopressor] 25 mg PO BID 07/28/15 [History] Nitroglycerin [Nitrostat] 0.4 mg SL Q5M PRN 07/28/15 [History] Aspirin [Lo-Dose Aspirin EC] 81 mg PO DAILY 05/04/18 [History] Budesonide/Formoterol 160/4.5 [Symbicort 160/4.5] 2 puff IH BIDR 05/04/18 [History] L. Acidophilus/Pectin, [place] [Acidophilus Probiotic Capsule] 1 cap PO DAILY 05/04/18 [History] Multivitamin [One Daily] 1 tab PO DAILY 05/04/18 [History] raNITIdine HCl [Zantac] 150 mg PO BID 05/04/18 [History] Menthol [Cough Drops] 9.1 mg PO Q2H PRN #0 lozenge 05/11/18 [Rx] Melatonin 6 mg PO HS 05/31/18 [History] Guaifenesin [Mucinex] 600 mg PO BID PRN 06/15/18 [History] Albuterol Neb [Proventil Neb] 2.5 mg PO TID PRN 08/03/18 [History] Benzonatate [Tessalon] 200 mg PO HS PRN 08/03/18 [History] Nystatin [Nystatin Suspension] 4 ml PO QID 08/03/18 [History] Promethazine [Phenergan] 25 mg PO Q6H PRN 08/03/18 [History] Umeclidinium Brm/Vilanterol Tr [Anoro Ellipta 62.5-25 Mcg INH] 2 puff PO DAILY 08/03/18 [History] Amoxicillin/Clavulanate [Augmentin] 875 mg PO BIDWM #84 tablet 08/27/18 [Rx] Voriconazole [VFend] 200 mg PO Q12H #84 tablet 08/27/18 [Rx] predniSONE [PredniSONE] 10 mg PO DAILY #30 tablet 08/27/18 [Rx] ALPRAZolam [Xanax 0.5 MG Tablet] 0.25 mg PO Q6HR PRN tablet 09/04/18 [Rx] Bumetanide [Bumex] 2 mg PO DAILY tablet 09/04/18 [Rx] Digoxin [Lanoxin] 0.25 mg PO DAILY tablet 09/04/18 [Rx] Isosorbide MONOnitrate (24 HR) [Imdur] 120 mg PO DAILY tab.er.24h 09/04/18 [Rx] Potassium Chloride 10 meq PO BIDWM tab.er.prt 09/04/18 [Rx] Allergies/Adverse Reactions: Allergy/AdvReac Type Severity Reaction Status Date / Time clarithromycin [From Biaxin] Allergy Gastrointestinal Verified 08/03/18 14:48 Upset codeine AdvReac See Verified 08/03/18 14:48 Comments lansoprazole [From Prevacid] AdvReac ulcer Verified 08/03/18 14:48 lisinopril AdvReac Cough Verified 08/03/18 14:48 meloxicam [From Mobic] AdvReac ulcer Verified 08/03/18 14:48 opium (anthroposophic) AdvReac nausea/vomi Verified 08/03/18 14:48 [Opium (Anthroposophic)] ting Date of admission: 08/27/18 17:10 Primary care physician: Ean Herron Jr, MD Consults: 08/27/18 17:25 Consult to Occupational Therapy [CONS] Routine Comment: Evaluate, develop and implement POC Reason for Consult: Evaluate, develop and implement POC Does patient have active BEDREST order?: No Is patient medically & hemodynamically stable?: Yes Patient assessed for mobility or mobilized this visit?: No Consult to Physical Therapy [CONS] Routine Comment: Evaluate, develop and implement POC Reason for Consult: Evaluate, develop and implement POC Does patient have active BEDREST order?: No Is patient medically & hemodynamically stable?: Yes Patient assessed for mobility or mobilized this visit?: No 08/27/18 18:25 Consult to Nutrition [CONS] Routine Comment: Consulting Provider: NUTRITION Reason for Dietary Consult: MST Score Consult to Salicylic Acid Blender [CONS] Routine Reason for SW Consult: discharge planning - Constitutional Vitals: Temp Pulse Resp BP Pulse Ox 98.5 F 69 22 107/70 78 09/04/18 18:42 09/04/18 18:42 09/04/18 18:50 09/04/18 18:42 09/04/18 18:50 - Patient Status Disposition: Transfer Other - Discharge Instructions
[2018-09-04] MEDS: Melatonin 3 MG TABLET PO SCH (22:33)
== END 2018-09-04 21:30 | disposition other institution (70) | DRG 194 ==
LOC: INPPIK 17:10
PROVIDERS: ADMIT Internal Medicine; ATTEND Internal Medicine